=== PATIENT | male | born 1965 | race Caucasian/White ===

== ENCOUNTER 2016-10-12 22:00 | Inpatient (IN) | payer OTHER ==
--- NOTE | ~2016-10-12 | DS ---
Unit #: [id number] #: [id number] Patient: SCOTT REED [id number] [address] [address] [id number] I MR#: [id number] NAME: SCOTT REED ROOM: 225 Age: 51 Sex: M Admission Date: 10/13/2016 : 1965 Discharge Date: 10/16/2016 Attending Physician: Radha Charlton M.D. Primary Care Physician: Gilmar Kirk M.D. DISCHARGE SUMMARY DISCHARGE DIAGNOSES 1. Left second toe osteomyelitis with methicillin-resistant Staphylococcus aureus, status post amputation. 2. Hyperkalemia. 3. Diabetes mellitus type 2. 4. Hypertension. 5. Iron-deficiency anemia. 6. Coronary artery disease with history of coronary artery bypass grafting in November 2015. 7. Postoperative atrial flutter, now sinus rhythm. The patient was on amiodarone which has been discontinued. 8. Hypertension. 9. Hyperlipidemia. 10. Right foot abscess, status post partial foot amputation. 11. Chronic systolic heart failure, ejection fraction 40% to 45%. CONSULTATIONS 1. Dr. Choi. 2. Dr. Tucker. PROCEDURE The patient had amputation of the left second toe. DIAGNOSTIC STUDIES LABORATORY: Glucose 118, sodium 139, potassium 4.8, creatinine 1.2. Wound cultures are growing MRSA. WBC 10, hemoglobin 10.5. Blood cultures negative. IMAGING: CAT scan of the left lower extremity shows osteomyelitis of distal phalanx of the second toe. ALLERGIES None. DISCHARGE MEDICATIONS 1. Neurontin 400 p.o. b.i.d. 2. Coreg 6.25 p.o. b.i.d. 3. Lipitor 80 p.o. daily. 4. Please note: Lisinopril has been stopped because of hyperkalemia. 5. Aspirin 81 daily. 6. Percocet 7.5 mg four times daily. 7. Dakin's solution topically b.i.d. 8. Glucotrol 2.5 p.o. daily before breakfast. 9. Zyvox 600 p.o. b.i.d. for 10 days. Unit #: [id number] #: [id number] Patient: SCOTT REED HOSPITALIZATION COURSE A 51 year old admitted because of left second toe swelling and erythema. Left second toe MRSA infection with osteomyelitis: The patient had amputation. The patient was started on IV vancomycin. Cultures were growing MRSA. I discussed with Dr. Choi. According to him, patient can be discharged on Zyvox for 10 days p.o. He will have dressing changes and follow with Dr. Choi in 10 days time. Hyperkalemia: Most likely secondary to lisinopril which has been discontinued. IV fluids given. Lasix given. Patient's potassium is stable now. Diabetes mellitus type 2: Controlled. Hypertension: Well controlled. Iron-deficiency anemia: No active bleeding. Follow as an outpatient. Atrial flutter postop history and now currently he is sinus rhythm. He was on amiodarone. The patient is seen by cardiology. They discontinued amiodarone. Chronic systolic heart failure: Ejection fraction 40% to 45%. The patient is not on lisinopril because of her hyperkalemia. Hyperlipidemia: Lipitor has been increased to 80 mg p.o. daily. Discussed with Dr. Choi. Okay to discharge this patient home. DISPOSITION Discharge home. FOLLOWUP 1. Follow with family physician in one week time. 2. Follow with Dr. Choi in 10 days' time. 3. I will arrange home health if patient needs help with his dressing. Discharge time taken is 35 minutes. Dictated by... Melvi Gonzalez TD: 10/16/2016 17:10 JOB #: [id number] Unit #: [id number] #: [id number] Patient: SCOTT REED DISCHARGE SUMMARY Page 1 of 1 X Radha Charlton MD X DISCHARGE SUMMARY
--- NOTE | ~2016-10-12 | HP ---
Unit #: [id number] #: [id number] Patient: SCOTT REED [id number] [address] [place], [place] [address] [id number] I MR#: [id number] NAME: SCOTT REED ROOM: 225 Age: 51 Sex: M Admission Date: 10/13/2016 : 1965 Attending Physician: Radha Charlton M.D. Primary Care Physician: Gilmar Kirk M.D. HISTORY AND PHYSICAL CHIEF COMPLAINT Left foot pain and swelling. HISTORY OF PRESENT ILLNESS This is a 51 year old with history of diabetic foot ulcers admitted because of left foot pain. According to him, the second toe was swollen for a month, but for 2 days it is more swollen and became red. Complaining of pain, around 8/10, constant, aching. Also complains of numbness and tingling. No fever. No chills. No trauma. No dizziness. No syncope. No nausea or vomiting. PAST MEDICAL HISTORY 1. History of diabetes, not on insulin. 2. Right foot abscess, for which he had incision and drainage multiple times. Later, he had partial foot amputation. 3. Hypertension. PAST SURGICAL HISTORY 1. History of right partial foot transmetatarsal amputation. 2. Left leg surgery. ALLERGIES None. CURRENT HOME MEDICATIONS 1. Metformin 1,000 p.o. daily. 2. Lisinopril 2.5 p.o. daily. 3. Amiodarone 200 daily. 4. Lipitor 40 daily. 5. Coreg 6.25 p.o. b.i.d. 6. Gabapentin 400 b.i.d. 7. Glucotrol 2.5 p.o. daily. 8. Percocet 7.5 mg q.i.d. 9. Mobic 15 mg p.o. daily. SOCIAL HISTORY No smoking. No alcohol use. Marijuana. FAMILY HISTORY Positive for hypertension. REVIEW OF SYSTEMS No headache. No visual changes. No leg swelling. No skin rash. No abdominal pain. No diarrhea. No constipation. Reviewed 12-point system Unit #: [id number] #: [id number] Patient: SCOTT REED with him, which are negative except as in HPI. PHYSICAL EXAMINATION VITAL SIGNS: Temperature 98.5, pulse 77, respirations 16, blood pressure 103/55. GENERAL EXAMINATION: A 51 year old lying in bed, not in acute distress. Able to provide history. Alert, oriented x3. EYES: Pupils are equally reactive to light and accommodation. MOUTH: Dry mucosa present. NECK: Supple. HEART: S1, S2 heard. Regular rhythm. No murmurs. LUNGS: Clear to auscultation. No crackles. No rhonchi. ABDOMEN: Soft, nontender. Bowel sounds are present. EXTREMITIES: Right foot partial amputation present. There is a 3-cm round old wound with minimum discharge present, which is hot and indurated and blackish color. Left foot second toe is very swollen and erythematous and tender to tough. NEUROLOGIC: No focal neurological deficits. DIAGNOSTIC STUDIES LAB DATA: Glucose 83, sedimentation rate 104, C-reactive protein 5.9, sodium 131, potassium 4.8, creatinine 1.1. Liver enzymes normal. WBC 13.1, hemoglobin 10.6, platelets 223. ASSESSMENT AND PLAN This is a 51 year old admitted because of left second toe erythema and swelling. 1. Left second toe cellulitis, rule out osteomyelitis. The patient is going for a CAT scan. The patient was started on IV vancomycin and Zosyn. Blood cultures have been sent. No open wound to send wound culture. The patient will be seen by wound care consult. The patient was already seen by orthopedics. Waiting on CAT scan report to further evaluate and treat. 2. Diabetes mellitus type 2. Controlled. 3. Hypertension, well controlled. 4. Chronic pain. Continue Percocet. 5. Chronic iron deficiency anemia. Currently stable. No active bleeding. 6. Mild hyponatremia. Monitor. 7. Lovenox 40 subcu daily for DVT prophylaxis. Dictated by Melvi Gonzalez/eliane TD: 10/13/2016 10:29 JOB #: [id number] Unit #: [id number] #: [id number] Patient: SCOTT REED HISTORY AND PHYSICAL Page 1 of 1 X Radha Charlton MD HISTORY AND PHYSICAL
--- NOTE | ~2016-10-12 | OR ---
Unit #: [id number] #: [id number] Patient: SCOTT BUSH [id number] [address] [place], [place] [address] [id number] I MR#: [id number] NAME: SCOTT BUSH ROOM: 225 Date of Procedure: 10/14/2016 Admission Date: 10/13/2016 Surgeon: Gilmar Choi M.D. : 1965 Attending Physician: Radha Charlton M.D. Primary Care Physician: Gilmar Kirk M.D. OPERATIVE REPORT PREOPERATIVE DIAGNOSIS Left second toe osteomyelitis. POSTOPERATIVE DIAGNOSIS Left second toe osteomyelitis. PROCEDURE PERFORMED Amputation of the left second toe. 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 ANESTHESIA General with LMA. COMPLICATIONS None. SPECIMENS The amputated toe was sent as well as culture swabs. DRAINS None. SURGICAL IMPLANTS None. INDICATIONS FOR PROCEDURE Mr. Bush is a 51-year-old male with poorly controlled diabetes. The patient was treated last year with partial amputation on the contralateral limb. He had developed painful swollen second toe. X-rays and CAT scan revealed osteomyelitis of the distal phalanx. Based on the symptoms and findings, it was felt that he would benefit from resection. The patient wished to proceed with surgical intervention. Risks, benefits, and alternatives of surgery were discussed with the patient and informed consent was obtained. DESCRIPTION OF PROCEDURE On 10/14/2016, the patient was seen in the preoperative holding area, where his surgical site was marked. Preoperative antibiotics were scheduled. The patient was taken to the operating room and provided Unit #: [id number] #: [id number] Patient: SCOTT BUSH general anesthesia. Left leg was prepped and draped in typical sterile fashion. A time-out was performed, confirming the correct surgical site and procedure. Esmarch was used to exsanguinate the leg. It was also used as a tourniquet just above the ankle joint. Next, a fishmouth incision was made over the toe, this was the second toe. There was purulence noted from the distal tip. Swabs were taken and sent for cultures. The toe was then excised after full-thickness incisions were taken around the toe. It was amputated through the DIP joint. Retractors were then placed around the middle phalanx and it was removed about 50% proximally. This provided adequate soft tissue coverage of the inferior flap and superior flaps. The wounds were thoroughly irrigated. Tourniquet released. The edge of the bone was smoothed off. 2-0 Vicryl was used to close the subcutaneous tissues, followed by 3-0 nylon interrupted stitches for the skin. Xeroform, 4x4s, Kerlix, and Garrett bandage were placed. The toe was warm and perfused. The patient was subsequently awakened from general anesthesia in stable condition and taken to PACU postoperatively. POSTOPERATIVE PLAN The patient will continue antibiotics. He will be seen by Wound Care for the other wounds. We will follow along while he is in the hospital. No complications encountered during this procedure. Dictated by... Gilmar Choi M.D. TRINA/jessa TD: 10/15/2016 07:15 JOB #: [id number] OPERATIVE REPORT Page 1 of 1 X X PROCEDURE OPERATIVE NOTE
--- NOTE | ~2016-10-12 | CO ---
Unit #: [id number] #: [id number] Patient: SCOTT REED [id number] [facility] [address] [facility]. [place], [place] [address] [id number] I MR#: [id number] NAME: SCOTT REED ROOM: 225 Age: 51 Sex: M Admission Date: 10/13/2016 : 1965 Attending Physician: Radha Charlton M.D. Primary Care Physician: Gilmar Kirk M.D. Consultation Date: 10/14/2016 CONSULTATION REPORT REASON FOR CONSULT History of atrial fibrillation. HISTORY OF PRESENT ILLNESS This is a 51-year-old white male known to Dr. Tucker with a past medical history of coronary artery disease, status post cardiac catheterization November 20, 2015 at [facility] which revealed severe three-vessel disease and a low ejection fraction of approximately 30%. The patient was transferred to [facility] and underwent a coronary artery bypass grafting. Intraoperative BO estimated the ejection fraction at 55% to 60%. Additional past medical history includes: Postoperative atrial flutter, currently in sinus rhythm, hypertension, hyperlipidemia, diabetes mellitus type 2, peripheral vascular disease, and previous osteomyelitis in the right foot status post partial amputation. The patient does have a history of alcohol use and marijuana. He is a lifetime nonsmoker. He presented to the emergency department with complaints of foot pain. The patient states that not long ago he removed his toenail off his second left toe. He began to notice swelling and discoloration on the toe. He denies any fever or chills. There are no reports of dizziness, palpitations, or syncope. He denies chest pain or shortness of breath; however, he is fairly sedentary due to osteoarthritis in his hips and previous partial right foot amputation. 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 He was admitted to the hospital for a left foot infection. He was started on vancomycin and Zosyn. Dr. Kerr was consulted. CT scan was completed of the left foot and revealed some osteomyelitis. Cardiology was consulted for history of atrial fibrillation. An EKG was obtained and reveals sinus rhythm; however, the patient remains on amiodarone which was started in 2015 after bypass surgery. PAST MEDICAL HISTORY 1. Coronary artery disease, status post cardiac catheterization November 20, 2015, revealed left main normal, proximal left circumflex 99%, first obtuse marginal 90%, LAD beyond the septal electronic calibration technician 99% then 75%, distal to another septal electronic calibration technician 90%, right coronary artery occluded, PDA and PLV filled by collaterals, ejection fraction 30%. 2. Status post coronary artery bypass grafting x4 with left internal mammary artery to the LAD, saphenous vein graft to the diagonal, saphenous vein graft to the obtuse marginal, and saphenous vein graft to the PDA. 3. Intraoperative BO, November 2015, revealed a left ventricular ejection Unit #: [id number] #: [id number] Patient: RISINGER,SCOTT fraction of 55% to 60%. 4. Postoperative atrial flutter, now sinus rhythm. 5. Hypertension. 6. Hyperlipidemia. 7. Diabetes mellitus type 2. 8. Peripheral vascular disease. 9. Osteomyelitis of the right foot, status post partial amputation. 10. History of alcohol use. 11. History of marijuana use. 12. Nonsmoker. PAST SURGICAL HISTORY 1. Cardiac catheterization. 2. Coronary artery bypass grafting. 3. Partial right foot amputation. 4. I and D of right elbow. HOME MEDICATIONS 1. Metformin 1000 mg p.o. daily. 2. Lisinopril 2.5 mg p.o. daily. 3. Amiodarone 200 mg p.o. daily. 4. Lipitor 40 mg p.o. daily. 5. Coreg 6.25 mg p.o. b.i.d. 6. Gabapentin 400 mg p.o. b.i.d. 7. Glipizide 2.5 mg p.o. daily. 8. Percocet 7.5/325 mg one tablet p.o. four times daily. 9. Mobic 15 mg p.o. daily. ALLERGIES No known drug allergies. SOCIAL HISTORY The patient lives in a private residence. He lives with his 6-year-old son. He is a nonsmoker. He does admit to history of occasional marijuana use. He has a history of alcohol abuse but not currently. FAMILY HISTORY Significant for heart disease. His mother had a valve surgery. His father has heart disease. REVIEW OF SYSTEMS A 10-point review of systems negative except for details noted above in HPI. PHYSICAL EXAMINATION VITAL SIGNS: Temperature 97.6, pulse 67, blood pressure 106/48. CONSTITUTIONAL: This is a 51-year-old white male in no acute distress. SKIN: Warm and dry. NECK: Supple. No jugular vein distention. No hepatojugular reflux. Normal carotid upstrokes. No carotid bruits auscultated. HEART: S1, S2. Regular rate and rhythm. No murmurs, rubs, or gallops. LUNGS: Bilateral breath sounds have good air entry throughout all lung venegas. Respirations even and nonlabored. No rales, rhonchi, or wheezes. ABDOMEN: Soft, nontender, nondistended. Positive bowel sounds auscultated x4 quadrants. No ascites noted. EXTREMITIES: Bilateral lower extremities have no pretibial pitting edema. DP pulses are 2+. Capillary refill less than 3 seconds. Unit #: [id number] #: [id number] Patient: SCOTT REED DIAGNOSTIC STUDIES LABORATORY: White blood cell count 10.2, hemoglobin 10.8, hematocrit 33.4, platelets 199,000. Sodium 138, potassium 5.1, chloride 107, CO2 of 23, BUN 24, creatinine 1, glucose 112. AST 12, ALT 14, alkaline phosphatase 53. Blood cultures pending. IMAGING: X-ray of the left foot reveals soft tissue swelling in the distal phalanx of the second toe. Deformity of the fifth MTP joint. CT of the lower extremity reveals findings compatible with osteomyelitis in the distal phalanx of the second toe. Soft tissue edema noted. CARDIOVASCULAR: EKG reveals sinus rhythm with a ventricular rate of 66 beats per minute, Q-waves noted in the inferior leads, normal QTc. IMPRESSION 1. Osteomyelitis of the left second distal phalanx. 2. Diabetes mellitus type 2. 3. Hypertension. 4. Hyperlipidemia. 5. Coronary artery disease with history of coronary artery bypass grafting in November 2015. 6. History of postoperative atrial flutter, now in sinus rhythm. 7. Mild anemia. PLAN 1. The patient presented to the hospital with complaints of left toe pain. He was admitted for left foot infection and started on antibiotics. 2. CT of the left lower extremity revealed osteomyelitis in the second toe. Surgery is following. 3. Cardiology was consulted due to a history of atrial flutter. The patient's EKG reveals sinus rhythm. His oral amiodarone will be discontinued due to no atrial arrhythmias since surgery and the patient's young age. 4. There are no reports of chest pain or evidence of congestive heart failure on exam. 5. The patient would be an acceptable moderate risk candidate for toe amputation under general anesthesia. 6. Will continue to follow for coronary artery disease. The patient had some left ventricular dysfunction last year and this will be re-evaluated with a 2D echocardiogram. Dictated by... Bettie Mejia APRN for Melvi Benítez TD: 10/15/2016 09:06 JOB #: [id number] Unit #: [id number] #: [id number] Patient: SCOTT REED CONSULTATION REPORT Page 1 of 1 X X CONSULTATION REPORT
--- NOTE | ~2016-10-12 | CO ---
Unit #: [id number] #: [id number] Patient: SCOTT REED [id number] [address] [place], [place] [address] [id number] I MR#: [id number] NAME: SCOTT REED ROOM: 225 Age: 51 Sex: M Admission Date: 10/13/2016 : 1965 Attending Physician: Radha Charlton M.D. Primary Care Physician: Gilmar Kirk M.D. Consultation Date: 10/13/2016 CONSULTATION REPORT REASON FOR ADMISSION Left foot pain and swelling. ADMITTING PHYSICIAN VALERIA - Dr. Newman CONSULTING PHYSICIAN Dr. Kerr/Jimbo/Barney REASON FOR CONSULTATION Left foot ulcer. The patient is a 51-year-old male known to our practice because Dr. Choi operated on the patient's right foot last year. The patient comes into the hospital today with complaints of left foot pain and ulcers and drainage. The patient reports he has had severe pain for at least two months in his left foot at this point. The patient was going to Wound Care but discontinued that. The patient reports he does have pain in his left foot that is an 8 on a scale of 1 to 10. He also admits to numbness and tingling but denies any fever or chills. PAST MEDICAL HISTORY 1. History of diabetes. 2. History of lower extremity wounds. 3. Hypertension. PAST SURGICAL HISTORY 1. Left leg surgery. 2. Right transmetatarsal amputation. 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 Denied any alcohol or any IV drug use. FAMILY HISTORY Mother with valvular heart disease. Multiple family members have diabetes. ALLERGIES No known drug allergies. MEDICATIONS Have not been reconciled at this point but his last hospitalization he was on: 1. Glimepiride. Unit #: [id number] #: [id number] Patient: SCOTT REED 2. Metformin. 3. Mobic. 4. Gabapentin. 5. Henrietta. REVIEW OF SYSTEMS CONSTITUTIONAL: The patient denies any weight gain or weight loss. EYES: Denies and double vision or blurred vision. LUNGS: Denies any shortness of air or chronic cough. CARDIOVASCULAR: Denied any chest pain or irregular heartbeat. ABDOMEN:: Denies any nausea or vomiting. MUSCULOSKELETAL: Admits to wounds on his lower extremities bilaterally. The left at this point worse than the right. SKIN: As above. NEUROLOGICAL: Admits to numbness and tingling of his lower extremities consistent with his diabetes. Twelve complete systems in toto reviewed and negative other than above. PHYSICAL EXAMINATION GENERAL: He is well developed, well nourished in no acute distress. VITAL SIGNS: His temperature is 98.5, blood pressure 110/65, heart rate 72 and regular, respirations 16. HEENT: Normocephalic, atraumatic. PERRLA. Extraocular movements intact. Conjunctivae clear. NECK: Supple. No thyromegaly. CARDIOVASCULAR: S1, S2. LUNGS: Clear to auscultation. No accessory muscle use. Equal expansion bilaterally. MUSCULOSKELETAL: Gait not appreciated. Examination of the patient's left lower extremity did reveal he has an ulcer on the bottom of his foot and he does have a lot of erythema and edema in his second toe consistent with possible osteomyelitis. He did have 2+ pulses in his lower extremities. He did have good sensation to both dull and sharp. He was able to wiggle all of his toes without problems or complications. His second toe nail has been removed. EXTREMITIES: No clubbing, cyanosis or edema other than noted above. SKIN: No rashes, lesions or ulcers other than noted above. He also has an ulcer on the bottom of his right foot. NEUROLOGICAL/LIMITED ORTHOPEDIC EXAM: He was able to move all four extremities without problems or complications. DIAGNOSTIC STUDIES IMAGING: X-rays of his left foot did show swelling and also possibility of osteomyelitis. LABORATORY: Sodium is 131, potassium 4.8, chloride 99, CO2 23, BUN 43, creatinine 1.1, glucose at 97. His hemoglobin is 10.6 and WBC 13.1. ASSESSMENT 1. Left lower extremity wound. 2. Diabetes. PLAN We will get a CT scan of the patent's left foot. Evaluate for osteomyelitis. Will also get wound care to see the patient for lower extremity wounds. Will make further recommendations after the CT is done. I will discuss this with Dr. Choi. Unit #: [id number] #: [id number] Patient: SCOTT REED Dictated by... Juvenal Swann P.A.-C- for Gilmar Choi M.D. ZULAY/ryan TD: 10/13/2016 09:21 JOB #: [id number] CONSULTATION REPORT Page 1 of 1 X X CONSULTATION REPORT
--- NOTE | ~2016-10-12 | EKG ---
PATIENT: SCOTT REED UNIT #: [id number] Ventricular Rate: 66 BPM Atrial Rate: 66 BPM P-R Interval: 176 ms QRS Duration: 102 ms Q-T Interval: 416 ms QTC Calculation(Bezet): 436 ms P [place]: 11 degrees Calculated R [place]: 28 degrees Calculated T [place]: 66 degrees Diagnosis Line: Normal sinus rhythm Diagnosis Line: Inferior infarct , age undetermined Diagnosis Line: Abnormal ECG Diagnosis Line: Diagnosis Line: Confirmed by REYES DAVIS MD ([id number]) on 10/14/2016 Diagnosis Line: 10:33:11 PM INTERPRETING MD: RYAN AVENDANO
--- NOTE | ~2016-10-12 | CR126 ---
[facility]. [facility] A Service of [facility] RADIOLOGY TEXT RESULTS PATIENT: SCOTT REED LOCATION: A 225 : [birth year] UNIT #: [id number] AGE: [address]: Radha Charlton MD SEX: M ORDER DR: [id number] [facility] [address] [facility]. [place], [place] [address] [id number] I MR#: [id number] Acc #: [id number] NAME: SCOTT REED : 1965 SEX: M STUDY DATE/TIME: 10/12/2016 21:52 UNIT: [facility] ROOM: [facility] STUDY DESCRIPTION: CR Foot Complete Min 3 View Lt Attending Physician: Radha Charlton M.D. Ordering Physician: Elzbieta Barker M.D. Primary Care Physician: Gilmar Kirk M.D. MEDICAL IMAGING REPORT This report is preliminary unless electronic signature is present EXAM Left foot 3 views. HISTORY Redness, pain, swelling left foot times 3 days. Diabetic. Evaluate for infection. FINDINGS 3 views of the left foot demonstrate soft tissue swelling about the second toe with osteolysis of the distal phalanx of the second toe, compatible with underlying osteomyelitis. Probable old fracture deformity and subluxation at the fifth metatarsal and fifth MTP joint. Instrumentation noted in the distal tibia from previous ORIF. IMPRESSION 1. Soft tissue swelling osteolysis of the distal phalanx of the second toe, compatible underlying osteomyelitis. 2. Deformity of the fifth MTP joint and penciling of the distal fifth metatarsal. This could be post-traumatic in nature, though could also be seen with underlying arthropathy. Dictated by... Christianne Babb M.D. THIS IS AN ELECTRONICALLY VERIFIED REPORT Christianne Babb M.D. at 10/14/2016 7:29 AM JAMES/odell TD: 10/13/2016 10:17 JOB #: [id number] MEDICAL IMAGING REPORT Page 1 of 1 COPY
--- NOTE | ~2016-10-12 | CT92 ---
[facility] A Service of [facility] & [facility] RADIOLOGY TEXT RESULTS PATIENT: SCOTT REED LOCATION: C2A 225- : [birth year] UNIT #: [id number] AGE: [address]: Radha Charlton MD SEX: M ORDER DR: [id number] [facility] [address] [place], [place] [address] [id number] MR#: [id number] Acc #: [id number] NAME: SCOTT REED : 1965 SEX: M STUDY DATE/TIME: 10/13/2016 12:39 UNIT: C2A ROOM: 225 STUDY DESCRIPTION: CT Lower Ext Lt Wo Cont Attending Physician: Radha Charlton M.D. Ordering Physician: Gillian Armstrong Primary Care Physician: Gilmar Kirk M.D. MEDICAL IMAGING REPORT This report is preliminary unless electronic signature is present EXAM CT of the left foot with coronal and sagittal reconstructions without contrast, 10/13/2016. HISTORY Order states CT scan left foot. Orthopedic progress note 03/15/2017 states left foot ulcer. Second toe osteomyelitis. History sheet states left foot diabetic infection. Severe pain in foot for 2 months with numbness and tingling. Left foot second toe surgery (not specified). TECHNIQUE This CT exam was performed with one or more of the following radiation dose reduction techniques: automatic exposure control, adjustment of mA and/or kV according to patient size, and iterative reconstruction. FINDINGS There is diffuse second toe swelling with osteolysis/destruction of the majority of the distal phalanx extending to the dorsal articular surface, most compatible with osteomyelitis as reported radiographically. Proximal and middle phalanges of the second toe are unremarkable. The remainder of the toes demonstrate no definite evidence of osteomyelitis. There is chronic deformity of the fifth metatarsal head with a "sucked candy" appearance in a diabetic most commonly related to neuropathic change or rapid osteolysis. Midfoot alignment is normal and there is no midfoot neural arthropathy. There is fairly advanced subtalar joint arthrosis involving the posterior subtalar and to a lesser degree the middle subtalar joints. There is an intramedullary tibial raine. STS. [facility] A Service of [facility] & [facility] RADIOLOGY TEXT RESULTS PATIENT: SCOTT REED LOCATION: A 225-01 : [birth year] UNIT #: [id number] AGE: [address]: Radha Charlton MD SEX: M ORDER DR: Marked diffuse muscle atrophy throughout the foot is most commonly seen in the setting of peripheral neuropathy. IMPRESSION 1. Findings compatible with osteomyelitis of the distal phalanx of the second toe as reported radiographically. 2. Chronic deformity fifth metatarsal head and neck with this appearance suggestive of neuropathic change. 3. Advanced subtalar arthrosis. 4. Second toe soft tissue edema. No gross sizeable wound to suggest an abscess on this noncontrast CT. 5. No recent fracture. Dictated by... Tisha Pena M.D. THIS IS AN ELECTRONICALLY VERIFIED REPORT Tisha Pena M.D. at 10/14/2016 8:22 AM JACQUIE/janine TD: 10/13/2016 17:27 JOB #: [id number] MEDICAL IMAGING REPORT Page 1 of 1 COPY
[~2016-10-12 22:00] MED LIST: AMARYL2 MG PO; BACTRIM 400-801 TA1 PO; BAYER CHEWABLE81 MG PO; COREG3.125 MG PO; FORTAMET1000 MG/B1 PO; GABAPENTIN400 MG PO; KEFLEX PO; KEFLEX500 MG PO; LIPITOR20 MG PO; MOBIC15 MG PO; NORCO 10-325 TA1 TAB PO; PERCOCET 10/31 UDTA1 PO; PRINIVIL5 MG PO; ROCEPHIN2 G/VIAL INJ
[2016-10-12 23:26] LABS: BASOPHIL% 0.3 % (0-2.5); EOSINOPHIL# 0.1 X10e3 (0-0.7); EOSINOPHIL% 0.4 % (0.0-7.0); HEMATOCRIT 32.8 % (38.0-50.0); HEMOGLOBIN 10.6 gm/dL (13.0-16.0); LYMPHOCYTE# 1.5 X10e3 (1.0-3.5); LYMPHOCYTE% 11.3 % (17.0-45.0); MEAN CELL VOLUME 83.8 FL (83-96); MEAN CORPUSCULAR HGB CONC 32.3 g/dL (30-36); MEAN PLATELET VOLUME 6.9 FL (6.5-11.5); MONOCYTE# 1.2 X10e3 (0-1.0); NEUTROPHIL# 10.4 X10e3 (1.5-7.1); PLATELET COUNT 223 X10e3 (140-420); RED BLOOD COUNT 3.92 X10e (3.90-5.60); RED CELL DISTRIBUTION WIDTH 15.2 % (11.0-15.5); WHITE BLOOD COUNT 13.1 X10e3 (4.0-10.5)
[2016-10-12 23:27] LABS: DIFF IND NO
[2016-10-12 23:53] LABS: ALBUMIN SERUM 3.9 g/dL (3.5-5.0); BILIRUBIN, DIRECT 0.1 mg/dL (0.0-0.2); BILIRUBIN,INDIRECT 0.3 mg/dL (0.0-0.9); BILIRUBIN,TOTAL 0.4 mg/dL (0.2-2.0); BUN/CREATININE RATIO 39.09; CALCIUM SERUM 8.7 mg/dL (8.4-10.2); CREATININE SERUM 1.1 mg/dL (0.6-1.4); GLOM FILT RATE Estimated 78.4 mL/min (>60); POTASSIUM 4.8 mmol/L (3.5-5.1); PROTEIN TOTAL SERUM 7.9 g/dL (6.0-8.3)
[2016-10-13] MEDS ORDERED: METFORMIN HCL1000 M1 PO (09:18)
[2016-10-13] MEDS ORDERED: ZESTRIL2.5 M1 PO (09:18)
[2016-10-13] MEDS ORDERED: LIPITOR40 MG PO (09:19)
[2016-10-13] MEDS ORDERED: AMIODARONE PO (09:19)
[2016-10-13] MEDS ORDERED: GABAPENTIN400 M2 PO (09:20)
[2016-10-13] MEDS ORDERED: COREG6.25 MG PO (09:20)
[2016-10-13] MEDS ORDERED: GLUCOTROL PO (09:21)
[2016-10-13] MEDS ORDERED: MOBIC15 MG PO (09:22)
[2016-10-13] MEDS ORDERED: PERCOCET 7.5/321 TAB PO (09:22)
[2016-10-14 07:05] LABS: BASOPHIL# 0.1 X10e3 (0-0.3); BASOPHIL% 0.6 % (0-2.5); EOSINOPHIL# 0.1 X10e3 (0-0.7); EOSINOPHIL% 0.9 % (0.0-7.0); HEMATOCRIT 33.4 % (38.0-50.0); HEMOGLOBIN 10.8 gm/dL (13.0-16.0); LYMPHOCYTE# 1.3 X10e3 (1.0-3.5); LYMPHOCYTE% 12.9 % (17.0-45.0); MEAN CELL VOLUME 84.2 FL (83-96); MEAN CORPUSCULAR HEMOGLOBIN 27.3 PG (28-34); MEAN CORPUSCULAR HGB CONC 32.4 g/dL (30-36); MEAN PLATELET VOLUME 7.1 FL (6.5-11.5); MONOCYTE% 9.8 % (3.0-12.0); NEUTROPHIL# 7.7 X10e3 (1.5-7.1); NEUTROPHIL% 75.8 % (40-75); PLATELET COUNT 199 X10e3 (140-420); RED BLOOD COUNT 3.96 X10e (3.90-5.60); RED CELL DISTRIBUTION WIDTH 14.9 % (11.0-15.5); WHITE BLOOD COUNT 10.2 X10e3 (4.0-10.5)
[2016-10-14 07:11] LABS: DIFF IND NO
[2016-10-14 07:49] LABS: ALBUMIN SERUM 3.3 g/dL (3.5-5.0); BILIRUBIN,TOTAL 0.4 mg/dL (0.2-2.0); CALCIUM SERUM 9.1 mg/dL (8.4-10.2); POTASSIUM 5.1 mmol/L (3.5-5.1); PROTEIN TOTAL SERUM 7.4 g/dL (6.0-8.3)
[2016-10-15 05:29] LABS: HEMATOCRIT 32.8 % (38.0-50.0); HEMOGLOBIN 10.5 gm/dL (13.0-16.0); MEAN CELL VOLUME 84.1 FL (83-96); MEAN CORPUSCULAR HGB CONC 32.1 g/dL (30-36); MEAN PLATELET VOLUME 7.3 FL (6.5-11.5); RED BLOOD COUNT 3.9 X10e (3.90-5.60); RED CELL DISTRIBUTION WIDTH 14.9 % (11.0-15.5); WHITE BLOOD COUNT 10.3 X10e3 (4.0-10.5)
[2016-10-15 06:11] LABS: CHOLESTEROL 127 mg/dL (0-200); HDL CHOLESTEROL 32 mg/dL (29-75); LDL CHOLESTEROL 82 mg/dL (-130); LDL/HDL RATIO 3 RATIO (0-4); TRIGLYCERIDES 64 mg/dL (10-160)
[2016-10-15 06:36] LABS: BUN/CREATININE RATIO 24.16; CALCIUM SERUM 8.5 mg/dL (8.4-10.2); CREATININE SERUM 1.2 mg/dL (0.6-1.4); GLOM FILT RATE Estimated 70.6 mL/min (>60); POTASSIUM 5.2 mmol/L (3.5-5.1)
[2016-10-16 06:46] LABS: BUN/CREATININE RATIO 26.36; CALCIUM SERUM 8.7 mg/dL (8.4-10.2); CREATININE SERUM 1.1 mg/dL (0.6-1.4); GLOM FILT RATE Estimated 78.4 mL/min (>60); POTASSIUM 5.4 mmol/L (3.5-5.1)
[2016-10-16 14:44] LABS: BUN/CREATININE RATIO 25.83; CALCIUM SERUM 8.7 mg/dL (8.4-10.2); CREATININE SERUM 1.2 mg/dL (0.6-1.4); GLOM FILT RATE Estimated 70.6 mL/min (>60); POTASSIUM 4.8 mmol/L (3.5-5.1)
[2016-10-16] MEDS ORDERED: ASPIRIN EC81 M1 PO (17:33)
[2016-10-16] MEDS ORDERED: H-CHLOR 12473 ML TOP (17:33)
[2016-10-16] MEDS ORDERED: ZYVOX600 MG PO (17:33)
[2016-10-16] MEDS ORDERED: PERCOCET 7.5-31 EACH PO (17:35)
== END 2016-10-16 18:39 | disposition home health service (06) | DRG 504 ==
LOC: CED 22:00 → CEDOF 10-13 00:15 → C2A 10-13 08:00
PROVIDERS: Internal Medicine; Nurse Practitioner Family; Orthopaedic Surgery; Student in an Organized Health Care Education/Training Program
PROC: 0Y6S0Z1 Detachment at Left 2nd Toe, High, Open Approach (ICD-10-PCS; 2016-10-14)
PROC: B246YZZ Ultrasonography of Right and Left Heart using Other Contrast (ICD-10-PCS; principal; 2016-10-14 12:00)
DX: M86.8X7 Other osteomyelitis, ankle and foot (principal); E87.1 Hypo-osmolality and hyponatremia; I11.0 Hypertensive heart disease with heart failure; I50.22 Chronic systolic (congestive) heart failure; E11.40 Type 2 diabetes mellitus with diabetic neuropathy, unspecified; B95.62 Methicillin resistant Staphylococcus aureus infection as the cause of diseases classified elsewhere; E11.628 Type 2 diabetes mellitus with other skin complications; L03.032 Cellulitis of left toe; Z79.84 Long term (current) use of oral hypoglycemic drugs; E78.5 Hyperlipidemia, unspecified; D50.9 Iron deficiency anemia, unspecified; I25.10 Atherosclerotic heart disease of native coronary artery without angina pectoris; Z95.1 Presence of aortocoronary bypass graft; E87.5 Hyperkalemia; I73.9 Peripheral vascular disease, unspecified; Z82.49 Family history of ischemic heart disease and other diseases of the circulatory system; Z89.431 Acquired absence of right foot; G89.29 Other chronic pain
CPT/HCPCS: 36415; 73630; 73700; 80048; 80053; 80061; 80076; 80202; 82947; 85025; 85027; 85652; 86140; 87040; 87070; 87075; 87077; 87186; 87205; 88305; 88311; 93005; 93306; 96365; 99291; C9113; J0696; J1650; J1815; J1940; J2250; J2405; J2543; J3010; J3370